=== PATIENT | male | born 1985 | race African-American/Black ===

== ENCOUNTER 2017-08-03 17:52 | Emergency (ER) | payer OTHER ==
[2017-08-03 18:19] VITALS: BP 140/81
[2017-08-03] MEDS ORDERED: IBUPROFEN 800 MG TABLET PO ONE (19:27)
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
== END 2017-08-03 20:01 | disposition home or self-care (01) ==
LOC: ER 17:52
DX: M54.5 Low back pain (principal); M54.9 Dorsalgia, unspecified; M79.1 Myalgia; F17.210 Nicotine dependence, cigarettes, uncomplicated
CPT/HCPCS: 99283

== ENCOUNTER 2018-04-16 00:40 | Emergency (ER) | payer OTHER ==
[2018-04-16] MEDS ORDERED: IBUPROFEN 800 MG TABLET PO ONE (01:22)
--- NOTE | 2018-04-16 01:27 | ER Document Report ---
ED General - General Chief Complaint: Knee Pain Stated Complaint: LEFT KNEE PAIN Time Seen by Provider: 04/16/18 01:08 Mode of Arrival: Ambulatory Information source: Patient TRAVEL OUTSIDE OF THE [place] IN LAST 30 DAYS: No - HPI Notes: Patient is a pleasant 32-year-old male status post previous left knee ACL, MCL and meniscus repair in 2003 from a football injury, presents to the emergency department with report of intermittent worsening of his left knee pain and swelling over the course of the last few months. The patient states he played basketball recently which may have flared up his knee. The patient denies any numbness or paresthesia or chest pain or difficulty breathing. The patient reports no specific ankle pain or hip pain on the left. The patient denies any other musculoskeletal complaint or injury. Patient denies any swelling distal to the knee. - Related Data Allergies/Adverse Reactions: No Known Allergies Allergy (Verified 08/03/17 18:17) Past Medical History - General Information source: Patient - Social History Smoking Status: Never Smoker Frequency of alcohol use: None Drug Abuse: None Lives with: Family Family History: CAD, DM, Hyperlipidemia, Hypertension, Malignancy Renal/ Medical History: Denies: Hx Peritoneal Dialysis Musculoskeltal Medical History: Reports Hx Musculoskeletal Deformity, Reports Hx Musculoskeletal Trauma Traumatic Medical History: Reports: Hx Fractures - Fingers and foot Past Surgical History: Reports: Hx Orthopedic Surgery - knee surgery left ACL and MCL and meniscus - Immunizations Immunizations up to date: Yes Hx Diphtheria, Pertussis, Tetanus Vaccination: Yes - 2009 Review of Systems - Review of Systems Notes: REVIEW OF SYSTEMS: CONSTITUTIONAL : Denies fever, chills, or sweats. Denies recent illness. CARDIOVASCULAR: Denies chest pain. Denies palpitations or racing or irregular heart beat. Denies ankle edema. RESPIRATORY: Denies shortness of breath, difficulty breathing, or wheezing. MUSCULOSKELETAL: Denies back or neck pain or stiffness. SKIN: Denies rash, lesions or sores. HEMATOLOGIC : Denies easy bruising or bleeding. LYMPHATIC: Denies swollen, enlarged glands. NEUROLOGICAL: Denies headache. Denies weakness or paralysis or loss of use of either side. Denies sensory loss, numbness, or tingling. ALL OTHER SYSTEMS REVIEWED AND NEGATIVE. Dictation was performed using [employer] voice recognition software Physical Exam - Vital signs Vitals: Temp Pulse Resp BP Pulse Ox 98.5 F 75 14 127/88 H 97 04/16/18 00:43 04/16/18 00:43 04/16/18 00:43 04/16/18 00:43 04/16/18 00:43 - Notes Notes: General healthy athletic no apparent distress. Exam of the patient's left lower extremity shows a nonfocal left hip and left ankle and foot. Patient has pain through the left knee where he has surgical scars which are healed but there is pain lateral greater than medial aspect of the knee. There is mild pain posteriorly. There is no palpable cord. Negative Homans. There is significant pain on medial and lateral collateral ligament testing and with full flexion of the knee. There is no gross significant effusion noted. Distally, the patient is neurovascularly intact. There is no proximal erythema or adenopathy. Course - Re-evaluation Re-evalutation: 04/16/18 01:40 The patient reported 2 weeks ago he had an x-ray of the left knee at the [facility] and was told that he may need a follow-up MRI of the knee. I am concerned for possible ligamentous disruption or previous surgical site disruption or meniscus injury. Patient is instructed to get a follow-up MRI and have follow-up with orthopedics. - Vital Signs Vital signs: Temp Pulse Resp BP Pulse Ox 98.5 F 75 14 127/88 H 97 04/16/18 00:43 04/16/18 00:43 04/16/18 00:43 04/16/18 00:43 04/16/18 00:43 Discharge - Discharge Clinical Impression: Knee sprain Qualifiers: Encounter type: initial encounter Involved ligament of knee: other ligament Laterality: left Qualified Code(s): S83.8X2A - Sprain of other specified parts of left knee, initial encounter Condition: Stable Disposition: HOME, SELF-CARE Instructions: Use of Crutches ([facility]), Knee Immobilizing Splint ([facility]), Sprained Knee ([facility]) Additional Instructions: You need a follow-up MRI of the need to evaluate for potential arthritic changes , meniscus injury, ligament injury, or disruption of your previous surgical repair. Prescriptions: Ibuprofen [Motrin 800 mg Tablet] 800 mg PO Q8H PRN #30 tab PRN Reason: Referrals: ANDRA SIMONS DO [ACTIVE STAFF] - Follow up as needed
[2018-04-16 02:42] VITALS: BP 124/69
== END 2018-04-16 02:44 | disposition home or self-care (01) ==
LOC: ER 00:40
DX: S83.8X2A Sprain of other specified parts of left knee, initial encounter (principal); M25.562 Pain in left knee; Z98.890 Other specified postprocedural states; X58.XXXA Exposure to other specified factors, initial encounter
CPT/HCPCS: 99283; L1830

== ENCOUNTER 2020-08-08 15:09 | Emergency (ER) | payer OTHER ==
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
--- NOTE | 2020-08-08 19:00 | RADIOLOGY REPORT (SQ) ---
EXAM DESCRIPTION: VENOUS UNILATERAL LOWER IMAGES COMPLETED DATE/TIME: 08/08/2020 6:41 pm REASON FOR STUDY: left leg tightness and discoloration COMPARISON: None. TECHNIQUE: Dynamic and static mack scale and color images acquired of the left leg venous system. Se lected spectral images acquired with additional compression and augmentation maneuvers. The contralat eral common femoral vein and saphenofemoral junction were also imaged. Images stored on PACS. LIMITATIONS: None. FINDINGS: COMMON FEMORAL: Normal phasicity, compression and augmentation. No visualized echogenic ma terial on mack scale. No defects on color images. FEMORAL: Normal compression and augmentation. No visualized echogenic material on mack scale. No defe cts on color images. POPLITEAL: Normal compression, augmentation. No visualized echogenic material on mack scale. No defec ts on color images. CALF VESSELS: Normal compression, augmentation. No visualized echogenic material on mack scale. No de fects on color images. GSV and SSV: Normal compression, augmentation. No visualized echogenic material on mack scale. No def ects on color images. ANY DEEP VENOUS INSUFFICIENCY: Not evaluated. ANY EVIDENCE OF POPLITEAL CYST: No. OTHER: No other significant finding. CONTRALATERAL COMMON FEMORAL VEIN: Normal phasicity, compression and augmentation. No visualized echogenic material on mack scale. No de fects on color images. IMPRESSION: 1. NO EVIDENCE OF DVT OR SVT IN THE LEFT LEG. COMMENT: 1. The results of this examination were given to the charge nurse on 08/08/2020. TECHNICAL DOCUMENTATION: JOB ID: [id number] 2010 [employer] All Rights Reserved Reading location - IP/workstation name: [email or web address]
--- NOTE | 2020-08-08 21:16 | ER Document Report ---
ED Extremity Problem, Lower - General Chief Complaint: Leg Swelling Stated Complaint: LEG SWELLING Time Seen by Provider: 08/08/20 16:00 Primary Care Provider: [facility] [Primary Care Provider] - Follow up as needed Mode of Arrival: Ambulatory Information source: Patient Notes: 35-year-old male who denies any previous medical problems presents to the emergency room complaining of discoloration to his left lower leg for the past 2 to 3 months. Admits to occasionally banging it but no acute trauma or injury that he is aware of. Patient does work as a truck driver helper and was seen at the [facility] who referred him for a ultrasound to rule out a DVT. Denies any previous history of DVTs or PEs. Denies pain. No difficulty walking. States he has had slight decrease in discoloration as he has been trying to walk and get more exercise. No recent surgery. No hemoptysis. TRAVEL OUTSIDE OF THE [place] IN LAST 30 DAYS: No - Related Data Allergies/Adverse Reactions: No Known Allergies Allergy (Verified 08/03/17 18:17) Past Medical History - General Information source: Patient - Social History Smoking Status: Former Smoker Frequency of alcohol use: wine nightly Drug Abuse: None Family History: CAD, DM, Hyperlipidemia, Hypertension, Malignancy Renal/ Medical History: Denies: Hx Peritoneal Dialysis Musculoskeletal Medical History: Reports Hx Musculoskeletal Deformity, Reports Hx Musculoskeletal Trauma Traumatic Medical History: Reports: Hx Fractures - Fingers and foot Past Surgical History: Reports: Hx Orthopedic Surgery - knee surgery left ACL and MCL and meniscus - Immunizations Immunizations up to date: Yes Hx Diphtheria, Pertussis, Tetanus Vaccination: Yes - 2009 Review of Systems - Review of Systems Constitutional: No symptoms reported EENT: No symptoms reported Cardiovascular: No symptoms reported Respiratory: No symptoms reported Musculoskeletal: No symptoms reported Skin: Other - Left lower extremity discoloration Hematologic/Lymphatic: No symptoms reported Neurological/Psychological: No symptoms reported -: Yes All other systems reviewed and negative Physical Exam - Vital signs Vitals: Temp Pulse Resp BP Pulse Ox 99.0 F 69 16 131/88 H 98 08/08/20 15:41 08/08/20 15:41 08/08/20 15:41 08/08/20 15:41 08/08/20 15:41 - General General appearance: Appears well, Alert - HEENT Head: Normocephalic, Atraumatic Eyes: Normal Pupils: PERRL - Respiratory Respiratory status: No respiratory distress Chest status: Nontender Breath sounds: Normal Chest palpation: Normal - Cardiovascular Rhythm: Regular Heart sounds: Normal auscultation Murmur: No - Extremities General upper extremity: Normal inspection, Nontender, Normal color, Normal ROM, Normal temperature General lower extremity: Nontender, Normal ROM, Normal temperature, Normal weight bearing, Other - Left lower extremity mid calf to mid calf with darkened discoloration of skin noted. It is not warm or tender to palpation. Good capillary refill.. No: Soila's sign - Neurological Neuro grossly intact: Yes Cognition: Normal Orientation: AAOx4 [place] Coma Scale Eye Opening: Spontaneous [place] Coma Scale Verbal: Oriented Cami Coma Scale Motor: Obeys Commands [place] Coma Scale Total: 15 Speech: Normal Motor strength normal: LUE, RUE, LLE, RLE Sensory: Normal Notes: Positive left pedal pulse. Capillary refill less than 3 seconds. Negative Homans. - Skin Skin Temperature: Warm Skin Moisture: Dry Skin Color: Hyperpigmentation Location of irregularity: Extremities Character of irregularity: Patchy Irregularity with: Other - Darkened colored skin noted. Course - Re-evaluation Re-evalutation: 08/08/20 21:11 Patient is resting comfortably he is pain-free. Reviewed negative ultrasound r esults with patient. Leg has good circulation. He has good capillary refill. He has negative Homans sign. He is neurovascularly intact. Long discussion with patient about questionable peripheral vascular disease. He has no risk factors. He has no family history. No diabetes. No emergent findings on exam. Was counseled on need to follow-up outpatient with his primary care physician for possible referral to a vascular surgeon for further evaluation for peripheral vascular disease. Counseled on use of compression stockings. Patient was given strict return to the emergency room guidelines. Return for any new or worsening symptoms. All questions were answered. Patient verbalized understanding and agrees with plan of care. 08/08/20 21:26 - Vital Signs Vital signs: Temp Pulse Resp BP Pulse Ox 98.5 F 72 16 141/80 H 97 08/08/20 19:40 08/08/20 19:40 08/08/20 19:40 08/08/20 19:40 08/08/20 19:40 - Diagnostic Test Radiology reviewed: Reports reviewed Discharge - Discharge Clinical Impression: Left leg claudication Condition: Stable Disposition: HOME, SELF-CARE Instructions: Leg Pain Nonspecific ([facility]), Peripheral Vascular Disease ([facility]) Additional Instructions: It is imperative that you follow-up outpatient with your primary care physician for further evaluation and treatment of the discoloration to your left leg. Return to the emergency room for any new or worsening symptoms. Referrals: [facility] [Primary Care Provider] - Follow up as needed
[2020-08-08 21:31] VITALS: BP 134/92
== END 2020-08-08 21:56 | disposition home or self-care (01) ==
LOC: ER 15:09
DX: I73.9 Peripheral vascular disease, unspecified (principal); Z87.891 Personal history of nicotine dependence
CPT/HCPCS: 93971; 99284